=== PATIENT | male | born 1945 | race Caucasian/White ===

== ENCOUNTER → 2017-04-18 | Outpatient (CLI) | payer MEDICARE, MEDICAID ==
[~2017-04-18] MED LIST: /TIOT18INH; ALEVE; ASPI81TA3; DUONSOL; IBUP800T; LEVA500T; LISI20TA5; LORATADINE; METHYLPREDNISOLONE; PROV90AE; SING10TA31; THERGRAN
--- NOTE | 2017-04-18 17:15 | REP ---
MAXILLOFACIAL CT WITHOUT CONTRAST: HISTORY: Chronic maxillary sinusitis. Minimal mucosal thickening is present in the frontal and left ethmoid sinuses. The remaining sinuses are clear. The ostiomeatal units are patent. The middle and inferior nasal turbinates are partially paradoxical. There is moderate deviation of the nasal septum to the right. The nasal septum abuts the right inferior nasal turbinate. The cribriform plate, medial pa of the orbits and optic canals are intact. The carotid canals form a segment of the posterolateral pa of the sphenoid sinus. IMPRESSION: Sinus mucosal thickening as described above. Signed by Hussain Lr MD 04/19/2017 08:10 A
== END ==
LOC: M RAD 16:35
PROVIDERS: ATTEND Otolaryngology
DX: J32.0 Chronic maxillary sinusitis (principal)

== ENCOUNTER 2018-01-11 11:50 | Observation (INO) | payer MEDICARE, MEDICAID ==
[2018-01-11] MEDS: LORazepam 2 MG/ML VIAL (J2060) IV ×2 (14:11→16:32)
[2018-01-11] MEDS: NS 1,000 ML IV ×2 (14:13→23:28)
[2018-01-11 14:15] LABS: BASO % 0.2 % (0.0-1.0); EOS # 0.1 10^3/uL (0.0-0.50); EOS % 0.6 % (0.0-3.0); HEMATOCRIT 43.5 % (42.0-52.0); IMMATURE GRANULOCYTE % 0.3 % (0-3.0); LYMPH % 19.1 % (24.0-44.0); MEAN CORPUSCULAR HEMOGLOBIN 32.3 pg (27.0-33.0); MEAN CORPUSCULAR HGB CONC 34.5 g/dl (32.0-36.5); MEAN CORPUSCULAR VOLUME 93.8 fl (80.0-96.0); MONO # 0.7 10^3/uL (0.0-0.8); MONO % 6.4 % (0.0-5.0); NEUTROPHILS # 7.8 10^3/uL (1.8-7.7); NEUTROPHILS % 73.4 % (36.0-66.0); PLATELET COUNT, AUTOMATED 253 10^3/uL (150-450); RED BLOOD COUNT 4.64 10^6/uL (4.30-6.10); RED CELL DISTRIBUTION WIDTH 12.6 % (11.5-14.5); WHITE BLOOD COUNT 10.6 10^3/uL (4.0-10.0)
[2018-01-11 14:39] LABS: ALKALINE PHOSPHATASE 54 U/L (45-117); ALT/SGPT 31 U/L (12-78); ANION GAP 10 MEQ/L (8-16); AST/SGOT 29 U/L (7-37); BLOOD UREA NITROGEN 19 MG/DL (7-18); CALCIUM LEVEL 8.9 MG/DL (8.8-10.2); CARBON DIOXIDE LEVEL 25 MEQ/L (21-32); CHLORIDE LEVEL 107 MEQ/L (98-107); CPK CREATINE PHOSPHOKINASE 561 U/L (39-308); CREATININE FOR GFR 0.95 MG/DL (0.70-1.30); GLOMERULAR FILTRATION RATE > 60.0 (>42); GLUCOSE, FASTING 106 MG/DL (70-100); POTASSIUM SERUM 4.1 MEQ/L (3.5-5.1); SODIUM LEVEL 142 MEQ/L (136-145)
[2018-01-11 14:40] LABS: ALBUMIN 3.8 GM/DL (3.2-5.2); ALBUMIN/GLOBULIN RATIO 1.15 (1.00-1.93); BILIRUBIN,DIRECT 0.1 MG/DL (0.0-0.2); BILIRUBIN,TOTAL 0.4 MG/DL (0.2-1.0); CK-MB VALUE MASS 3.8 NG/ML (<3.6); LIPASE 93 U/L (73-393); MB/CK RELATIVE INDEX 0.67 (< OR =4); TOTAL PROTEIN 7.1 GM/DL (6.4-8.2); TROPONIN I < 0.02 NG/ML (< 0.10)
[2018-01-11] MEDS: MECLIZINE 25 MG TABLET PO (16:32)
[2018-01-11] MEDS ORDERED: BISACODYL 5 MG TAB PO (23:30)
[2018-01-11] MEDS ORDERED: ONDANSETRON 4MG/2ML VIAL (J2405) IV (23:30)
[2018-01-11] MEDS ORDERED: ACETAMINOPHEN TAB 650MG DOSE (2X325MG) PO (23:30)
[2018-01-11] MEDS ORDERED: LORazepam 2 MG/ML VIAL (J2060) IV (23:30)
[2018-01-11] MEDS ORDERED: diphenhydrAMINE INJ 50MG/ML VIAL (J1200) IV (23:30)
[2018-01-11] MEDS ORDERED: METOCLOPRAMIDE INJ 10MG/2ML VIAL (J2765) IV (23:30)
[2018-01-11] MEDS ORDERED: MECLIZINE 12.5 MG TAB PO (23:30)
[2018-01-11] MEDS ORDERED: BISACODYL 10 MG SUPP PR (23:30)
[2018-01-12] MEDS ORDERED: IPRATROPIUM 0.5MG/ALBUTEROL 2.5MG INH SOL UD 3ML (DUONEB)(J7620) NEB (00:30)
[2018-01-12] MEDS: IPRATROPIUM 0.5MG/ALBUTEROL 2.5MG INH SOL UD 3ML (DUONEB)(J7620) NEB ×3 (01:35→14:00)
[2018-01-12] MEDS: HEPARIN SOD (PORCINE) 5000 UNITS/ML VIAL SC (06:00)
[2018-01-12] MEDS: TIOTROPIUM INHALER/CAPSULE (SPIRIVA) INH (08:00)
[2018-01-12 08:24] LABS: HEMOGLOBIN 14.7 g/dl (13.5-17.5); MEAN CORPUSCULAR HEMOGLOBIN 32.7 pg (27.0-33.0); MEAN CORPUSCULAR VOLUME 93.3 fl (80.0-96.0); PLATELET COUNT, AUTOMATED 232 10^3/uL (150-450); RED CELL DISTRIBUTION WIDTH 12.6 % (11.5-14.5); WHITE BLOOD COUNT 12.1 10^3/uL (4.0-10.0)
[2018-01-12 08:38] LABS: ANION GAP 7 MEQ/L (8-16); BLOOD UREA NITROGEN 20 MG/DL (7-18); CALCIUM LEVEL 8.7 MG/DL (8.8-10.2); CARBON DIOXIDE LEVEL 25 MEQ/L (21-32); CHLORIDE LEVEL 108 MEQ/L (98-107); CREATININE FOR GFR 0.82 MG/DL (0.70-1.30); GLOMERULAR FILTRATION RATE > 60.0 (>42); GLUCOSE, FASTING 94 MG/DL (70-100); SODIUM LEVEL 140 MEQ/L (136-145)
[2018-01-12] MEDS: ASPIRIN 81 MG ENTERIC TAB PO (10:48)
[2018-01-12] MEDS: MECLIZINE 12.5 MG TAB PO (10:48)
== END 2018-01-12 15:31 | disposition home or self-care (01) ==
LOC: M ED 11:50 → M ED INP 23:28
DX: R42 Dizziness and giddiness (principal); R11.2 Nausea with vomiting, unspecified; J44.9 Chronic obstructive pulmonary disease, unspecified; E78.4 Other hyperlipidemia; I10 Essential (primary) hypertension; K44.9 Diaphragmatic hernia without obstruction or gangrene; B18.2 Chronic viral hepatitis C; Z79.899 Other long term (current) drug therapy; F17.210 Nicotine dependence, cigarettes, uncomplicated; Z88.8 Allergy status to other drugs, medicaments and biological substances; Z86.59 Personal history of other mental and behavioral disorders; Z79.82 Long term (current) use of aspirin
CPT/HCPCS: J2060

== ENCOUNTER → 2018-02-06 | Outpatient (CLI) | payer MEDICARE, MEDICAID | LOC: M RAD 13:18 | DX: N63.20 Unspecified lump in the left breast, unspecified quadrant (principal) | CPT/HCPCS: 77066 ==

== ENCOUNTER → 2018-03-12 | Outpatient (CLI) | payer MEDICARE, MEDICAID | LOC: M RAD 10:48 | DX: H92.11 Otorrhea, right ear (principal); J32.2 Chronic ethmoidal sinusitis; Z98.890 Other specified postprocedural states | CPT/HCPCS: 70480 ==

== ENCOUNTER 2020-03-06 11:07 | Emergency (ER) | payer MEDICARE, MEDICAID ==
[~2020-03-06] VITALS: Ht 193 cm; Wt 80.2 kg
[~2020-03-06 11:07] MED LIST changes: -/TIOT18INH; -ASPI81TA3; +ASPI81TA3 PO; -DUONSOL; +DUONSOL INH; -IBUP800T; +IBUP800T PO; +LISI10TA4 PO; -LISI20TA5; +LISI20TA5 PO; +LORA10CA PO; +MECL-86 PO; +MECL1TAB31 PO; +NAPR250T4 PO; -PROV90AE; +PROV90AE INH; -SING10TA31; +SING10TA31 PO; +SPIR1CAP INH; -THERGRAN; +THERGRAN PO; +ZOFR4TAB16 PO
[2020-03-06] MEDS ORDERED: CYCLOBENZAPRINE 10MG TABLET PO ONE (12:45)
[2020-03-06] MEDS ORDERED: LIDOCAINE 5% (LIDODERM) PATCH TD ONE (12:45)
--- NOTE | 2020-03-06 13:10 | REPVR ---
PROCEDURE INFORMATION: Exam: CT Abdomen And Pelvis Without Contrast Exam date and time: 03/06/2020 12:48 PM Age: 74 years old Clinical indication: Abdominal pain; Localized; Left; Additional info: L flank pain/cva tenderness R/O kidney stone TECHNIQUE: Imaging protocol: Computed tomography of the abdomen and pelvis without contrast. Radiation optimization: All CT scans at this facility use at least one of these dose optimization techniques: automated exposure control; mA and/or kV adjustment per patient size (includes targeted exams where dose is matched to clinical indication); or iterative reconstruction. COMPARISON: CR Abdomen,Flat Upright,PA CHEST 01/11/2018 1:30 PM FINDINGS: Lungs: Lung bases are slightly hyperinflated without evidence of abnormal mass lesions. There is mild bibasilar bronchiectasis. Liver: Liver is mildly fatty nonenlarged. Gallbladder and bile ducts: Gallbladder has been removed. Pancreas: Normal. No ductal dilation. Spleen: Normal. No splenomegaly. Adrenals: Normal. No mass. Kidneys and ureters: Simple cysts are noted involving the right kidney measuring up to 16 mm. Stomach and bowel: Scattered colonic diverticula are identified. Appendix: The appendix is seen appears normal. Intraperitoneal space: Unremarkable. No free air. No significant fluid collection. Vasculature: Unremarkable. No abdominal aortic aneurysm. Lymph nodes: Unremarkable. No enlarged lymph nodes. Urinary bladder: Unremarkable as visualized. Reproductive: Prostate is slightly enlarged indenting the base of the bladder. Bones/joints: Very severe degenerative changes are seen from L2-L4. Soft tissues: Unremarkable. IMPRESSION: 1. Bosniak class 1 renal cysts. No further workup recommended. 2. No nephrolithiasis nor hydronephrosis. 3. Bronchiectasis in lung base hyperinflation. 4. Status post cholecystectomy. 5. Diverticular disease. 6. Suspected enlarged prostate. There is no evidence of urinary bladder wall thickening. COMMENTS: Consistent with the [employer]'s Incidental Findings Committee white paper (J Am Pierce Radiol 2018): Any incidental renal lesion less than 1 cm or classified as too small to characterize, or any incidental cystic renal lesion characterized as simple-appearing, is likely benign. No follow-up imaging is recommended for these lesions per consensus recommendations based on imaging criteria. Electronically signed by: Martín Flores On 03/06/2020 13:10:22 PM
[2020-03-06] MEDS ORDERED: LIDO5DIS41 TOP (13:20)
[2020-03-06] MEDS ORDERED: CYCL-707 PO (13:20)
[2020-03-06 13:24] VITALS: BP 163/73
[2020-03-06] MEDS ORDERED: **NOTE PATIENT COMMENT** MISC XX SCH (21:00)
== END 2020-03-06 13:28 | disposition home or self-care (01) ==
LOC: M ED 11:07
DX: M54.5 Low back pain (principal); N28.1 Cyst of kidney, acquired; K57.32 Diverticulitis of large intestine without perforation or abscess without bleeding; I10 Essential (primary) hypertension; J44.9 Chronic obstructive pulmonary disease, unspecified; E78.5 Hyperlipidemia, unspecified; F17.200 Nicotine dependence, unspecified, uncomplicated; Z79.82 Long term (current) use of aspirin; Z79.899 Other long term (current) drug therapy; Z88.8 Allergy status to other drugs, medicaments and biological substances

== ENCOUNTER → 2020-12-04 | Outpatient (CLI) | payer MEDICARE, MEDICAID ==
[~2020-12-04] MED LIST changes: +CYCL-707 PO; +LIDO5DIS41 TOP; +LISI10TA22 PO; -LISI10TA4 PO; +NAPR-849 PO; -NAPR250T4 PO
== END ==
LOC: M LAB 13:34
PROVIDERS: ATTEND Nurse Practitioner Women's Health
DX: R97.20 Elevated prostate specific antigen [PSA] (principal)

== ENCOUNTER → 2020-12-09 | Outpatient (REF) | payer MEDICARE, MEDICAID ==
[2020-12-09 17:41] LABS: APPEARANCE, URINE CLEAR (CLEAR); BACTERIA, URINE AUTO NEGATIVE (NEGATIVE); BILIRUBIN, URINE AUTO NEGATIVE (NEGATIVE); BLOOD, URINE BLOOD NEGATIVE (NEGATIVE); COLOR, URINE YELLOW (YELLOW); GLUCOSE, URINE (UA) AUTO NEGATIVE (NEGATIVE); KETONE, URINE AUTO NEGATIVE (NEGATIVE); LEUKOCYTE ESTERASE, URINE AUTO NEGATIVE (NEGATIVE); NITRITE, URINE AUTO NEGATIVE (NEGATIVE); PROTEIN, URINE AUTO NEGATIVE (NEGATIVE); RBC, URINE AUTO 0 /HPF (0-3); SPECIFIC GRAVITY URINE AUTO 1.006 (1.002-1.035); SQUAMOUS EPITHELIAL CELL UR AU 0 /HPF (0-6); UROBILINOGEN, URINE AUTO 0.2 mg/dL (0.0-2.0); WBC, URINE AUTO 0 /HPF (0-3)
== END ==
LOC: M SMT 16:41
PROVIDERS: ATTEND Nurse Practitioner Women's Health
DX: R97.20 Elevated prostate specific antigen [PSA] (principal); N40.0 Benign prostatic hyperplasia without lower urinary tract symptoms

== ENCOUNTER 2021-01-01 10:34 | Emergency (ER) | payer MEDICARE, MEDICAID ==
[~2021-01-01] VITALS: Ht 193 cm; Wt 76.7 kg
[2021-01-01 10:35] VITALS: BP 126/60
[2021-01-01] MEDS ORDERED: NS 1,000 ML IV ONE (12:35)
[2021-01-01] MEDS ORDERED: ISOVUE-370 76% 100ML VIAL As Ordered ONE (13:06)
[2021-01-01 13:07] LABS: BASO % 0.3 % (0.0-1.0); EOS % 0.3 % (0.0-3.0); HEMATOCRIT 38.4 % (42.0-52.0); HEMOGLOBIN 13.3 g/dl (13.5-17.5); LYMPH # 1.5 10^3/uL (1.5-5.0); LYMPH % 14.4 % (24.0-44.0); MEAN CORPUSCULAR HEMOGLOBIN 32.5 pg (27.0-33.0); MEAN CORPUSCULAR HGB CONC 34.6 g/dl (32.0-36.5); MEAN CORPUSCULAR VOLUME 93.9 fl (80.0-96.0); MONO % 9.7 % (2.0-8.0); NEUTROPHILS # 7.8 10^3/uL (1.5-8.5); NEUTROPHILS % 74.7 % (36.0-66.0); PLATELET COUNT, AUTOMATED 245 10^3/uL (150-450); RED BLOOD COUNT 4.09 10^6/uL (4.30-6.10); WHITE BLOOD COUNT 10.4 10^3/uL (4.0-10.0)
[2021-01-01 13:34] LABS: ALBUMIN 3.6 GM/DL (3.2-5.2); BILIRUBIN,DIRECT 0.2 MG/DL (0.0-0.2); BILIRUBIN,TOTAL 0.5 MG/DL (0.2-1.0); TOTAL PROTEIN 6.9 GM/DL (6.4-8.2)
--- NOTE | 2021-01-01 13:37 | REP ---
INDICATION: epigastric pain, dyspepsia smoker. COMPARISON: None. TECHNIQUE: scans were obtained with contrast. FINDINGS: The lungs are emphysematous. There is a focus of pleural thickening the right side posteriorly. Multiple nonenlarged lymph nodes are noted in the mediastinum. There is no evidence of pneumonia or lung nodule. The thyroid is not enlarged. The coronary arteries are calcified. The heart is not enlarged. The adrenal glands are unremarkable. IMPRESSION: Emphysema. No active process patient <Electronically signed by Jan Dickerson > 01/01/21 [id number]
--- NOTE | 2021-01-01 13:40 | REP ---
INDICATION: epigastric pain, dyspepsia smoker. COMPARISON: None. TECHNIQUE: Scans were obtained during contrast administration. FINDINGS: The gallbladder has been surgically removed. The bile ducts are not dilated. The liver shows normal size and attenuation. The pancreas, spleen, aorta, adrenal glands unremarkable. Small bilateral renal cysts. No mass or hydronephrosis in either kidney. No mesenteric or retroperitoneal adenopathy. No inflammatory changes in the abdomen or pelvis. Large and small bowel unremarkable. Prostate enlarged measuring 5 x 5.5 cm. IMPRESSION: Enlarged prostate. Small bilateral renal cysts. No mass, adenopathy or inflammatory change in the abdomen or pelvis. <Electronically signed by Jan Dickerson > 01/01/21 [id number]
[2021-01-01] MEDS ORDERED: SIME180C25 PO (15:17)
[2021-01-01] MEDS ORDERED: CARA1TAB6 PO (15:17)
--- NOTE | 2021-01-02 08:04 | ED PDOC ---
Post-Departure Follow-Up radiology report faxed to ihsan Tabor Sarah MD Jan 02, 2021 08:04
== END 2021-01-01 15:25 | disposition home or self-care (01) ==
LOC: M ED 10:34
DX: R10.13 Epigastric pain (principal); F17.200 Nicotine dependence, unspecified, uncomplicated; J43.9 Emphysema, unspecified; N40.0 Benign prostatic hyperplasia without lower urinary tract symptoms; N28.1 Cyst of kidney, acquired; Z79.82 Long term (current) use of aspirin; Z79.899 Other long term (current) drug therapy; Z88.8 Allergy status to other drugs, medicaments and biological substances
CPT/HCPCS: 71260; 74177; 80047; 80076; 83690; 85025; 96360; 96361; 99283; Q9967

== ENCOUNTER 2021-02-05 17:54 | Emergency (ER) | payer MEDICARE, MEDICAID ==
[~2021-02-05] VITALS: Ht 193 cm; Wt 75.0 kg
[~2021-02-05 17:54] MED LIST changes: +CARA1TAB6 PO; +SIME180C25 PO
[2021-02-05 19:34] LABS: BASO % 0.3 % (0.0-1.0); EOS # 0.1 10^3/uL (0.0-0.5); EOS % 1.1 % (0.0-3.0); HEMATOCRIT 36.4 % (42.0-52.0); HEMOGLOBIN 12.4 g/dl (13.5-17.5); LYMPH # 2.4 10^3/uL (1.5-5.0); LYMPH % 23.6 % (24.0-44.0); MEAN CORPUSCULAR HEMOGLOBIN 31.7 pg (27.0-33.0); MEAN CORPUSCULAR HGB CONC 34.1 g/dl (32.0-36.5); MEAN CORPUSCULAR VOLUME 93.1 fl (80.0-96.0); MONO # 1.2 10^3/uL (0.0-0.8); MONO % 11.8 % (2.0-8.0); NEUTROPHILS # 6.4 10^3/uL (1.5-8.5); NEUTROPHILS % 62.9 % (36.0-66.0); PLATELET COUNT, AUTOMATED 271 10^3/uL (150-450); RED BLOOD COUNT 3.91 10^6/uL (4.30-6.10); WHITE BLOOD COUNT 10.2 10^3/uL (4.0-10.0)
[2021-02-05 20:08] LABS: ALBUMIN 2.7 GM/DL (3.2-5.2); ALT/SGPT 24 U/L (12-78); BILIRUBIN,DIRECT 0.2 MG/DL (0.0-0.2); BILIRUBIN,TOTAL 0.5 MG/DL (0.2-1.0); BLOOD UREA NITROGEN 10 MG/DL (7-18); CALCIUM LEVEL 8.3 MG/DL (8.8-10.2); CARBON DIOXIDE LEVEL 26 MEQ/L (21-32); CHLORIDE LEVEL 99 MEQ/L (98-107); CK-MB VALUE MASS < 1.0 NG/ML (<3.6); CPK CREATINE PHOSPHOKINASE 73 U/L (39-308); CREATININE FOR GFR 0.89 MG/DL (0.70-1.30); FREE T4 1.33 NG/DL (0.76-1.46); GLOMERULAR FILTRATION RATE > 60.0 (>42); GLUCOSE, FASTING 98 MG/DL (70-100); LIPASE 45 U/L (73-393); MB/CK RELATIVE INDEX 1.37 (< OR =4); POTASSIUM SERUM 4.5 MEQ/L (3.5-5.1); SODIUM LEVEL 132 MEQ/L (136-145); TROPONIN I < 0.02 NG/ML (< 0.10)
--- NOTE | 2021-02-05 20:10 | REP ---
INDICATION: CHEST PAIN. COMPARISON: 07/14/2017 TECHNIQUE: Portable FINDINGS: The technique utilized in obtaining the radiograph has magnified the cardiac silhouette and accentuated the interstitial markings. The patient is tilted rotated to the right. The lung lomas are clear and essentially unchanged compared to the prior exam. The heart is not enlarged the pleural angles are sharp. The osseous structures are within normal limits. IMPRESSION: There is no acute cardiopulmonary disease. <Electronically signed by Flaco Jacobson > 02/05/212005
[2021-02-05] MEDS ORDERED: PROT1TAB2 PO (20:51)
[2021-02-05 21:10] VITALS: BP 128/65
--- NOTE | 2021-02-06 11:25 | ECGEPIP ---
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
== END 2021-02-05 21:22 | disposition home or self-care (01) ==
LOC: M ED 17:54
DX: R13.10 Dysphagia, unspecified (principal); K44.9 Diaphragmatic hernia without obstruction or gangrene; K21.9 Gastro-esophageal reflux disease without esophagitis; F17.200 Nicotine dependence, unspecified, uncomplicated; Z79.899 Other long term (current) drug therapy; Z88.8 Allergy status to other drugs, medicaments and biological substances

== ENCOUNTER 2021-02-12 15:39 | Inpatient (IN) | payer MEDICARE, MEDICAID ==
[~2021-02-12] VITALS: Ht 193 cm; Wt 75.0 kg
[~2021-02-12 15:39] MED LIST changes: +PROT1TAB2 PO
--- NOTE | 2021-02-12 16:50 | REP ---
INDICATION: dizziness. COMPARISON: 02/05/2021 TECHNIQUE: Portable FINDINGS: The technique utilized in obtaining the radiograph has magnified the cardiac silhouette and accentuated the interstitial markings. There is cardiomegaly accentuated by technique status quo. Lung lomas are hyperexpanded status quo. There are chronic bibasilar changes. No definite acute patchy parenchymal opacities or pleural effusions seem to have developed. There is no significant change in appearance of the osseous structures IMPRESSION: Stable appearing chronic changes. <Electronically signed by Flaco Jacobson > 02/12/21 [id number]
[2021-02-12 17:10] LABS: BASO % 0.1 % (0.0-1.0); EOS % 0.1 % (0.0-3.0); HEMATOCRIT 34.9 % (42.0-52.0); HEMOGLOBIN 11.9 g/dl (13.5-17.5); LYMPH # 1.4 10^3/uL (1.5-5.0); LYMPH % 7.2 % (24.0-44.0); MEAN CORPUSCULAR HEMOGLOBIN 31.5 pg (27.0-33.0); MEAN CORPUSCULAR HGB CONC 34.1 g/dl (32.0-36.5); MEAN CORPUSCULAR VOLUME 92.3 fl (80.0-96.0); MONO # 1.6 10^3/uL (0.0-0.8); MONO % 8.1 % (2.0-8.0); NEUTROPHILS # 16.1 10^3/uL (1.5-8.5); PLATELET COUNT, AUTOMATED 344 10^3/uL (150-450); RED BLOOD COUNT 3.78 10^6/uL (4.30-6.10); WHITE BLOOD COUNT 19.1 10^3/uL (4.0-10.0)
[2021-02-12] MEDS ORDERED: LIDOCAINE 2% 5ML JELLY UROJET As Ordered ONE (17:11)
[2021-02-12] MEDS ORDERED: LIDOCAINE 2% 5ML JELLY UROJET TOP ONE (17:25)
[2021-02-12 17:37] LABS: ALBUMIN 2.9 GM/DL (3.2-5.2); ALT/SGPT 20 U/L (12-78); BILIRUBIN,DIRECT 0.2 MG/DL (0.0-0.2); BILIRUBIN,TOTAL 0.4 MG/DL (0.2-1.0); BLOOD UREA NITROGEN 29 MG/DL (7-18); CARBON DIOXIDE LEVEL 26 MEQ/L (21-32); CHLORIDE LEVEL 95 MEQ/L (98-107); CK-MB VALUE MASS < 1.0 NG/ML (<3.6); CPK CREATINE PHOSPHOKINASE 49 U/L (39-308); FREE T4 1.53 NG/DL (0.76-1.46); GLOMERULAR FILTRATION RATE > 60.0 (>42); GLUCOSE, FASTING 123 MG/DL (70-100); LIPASE 50 U/L (73-393); MB/CK RELATIVE INDEX 2.04 (< OR =4); POTASSIUM SERUM 4.8 MEQ/L (3.5-5.1); SODIUM LEVEL 130 MEQ/L (136-145); TOTAL PROTEIN 6.3 GM/DL (6.4-8.2); TROPONIN I < 0.02 NG/ML (< 0.10)
[2021-02-12] MEDS: NS 1,000 ML IV SCH (17:50)
[2021-02-12] MEDS: GASTROGRAFIN SOLUTION 30ML PO SCH ×2 (18:50→19:25)
--- NOTE | 2021-02-12 19:30 | ECGEPIP ---
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
[2021-02-12] MEDS ORDERED: ISOVUE-370 76% 100ML VIAL As Ordered ONE (20:40)
[2021-02-12] MEDS ORDERED: TAMSULOSIN 0.4 MG CAP PO SCH (21:00)
--- NOTE | 2021-02-12 22:26 | REPVR ---
PROCEDURE INFORMATION: Exam: CT Abdomen And Pelvis With Contrast Exam date and time: 02/12/2021 9:07 PM Age: 75 years old Clinical indication: Abdominal pain; Localized; Upper; Additional info: Upper abd pain, no bowel movement x 4days TECHNIQUE: Imaging protocol: Computed tomography of the abdomen and pelvis with contrast. Radiation optimization: All CT scans at this facility use at least one of these dose optimization techniques: automated exposure control; mA and/or kV adjustment per patient size (includes targeted exams where dose is matched to clinical indication); or iterative reconstruction. Contrast material: ISOVUE 370; Contrast volume: 100 ml; Contrast route: INTRAVENOUS (IV); COMPARISON: CT ABD/PEL W/IV CONTRAST ONLY 01/01/2021 1:12 PM FINDINGS: Pleural spaces: Small right pleural effusion in the visualized lung base. Heart: Small size of pericardial effusion. Liver: Normal. No mass. Gallbladder and bile ducts: Cholecystectomy clips. Pancreas: Normal. No ductal dilation. Spleen: Normal. No splenomegaly. Adrenal glands: Normal. No mass. Kidneys and ureters: 1.5 cm cyst in the midpole of left kidney. Stomach and bowel: Unremarkable. No obstruction. No mucosal thickening. Appendix: No evidence of appendicitis. Intraperitoneal space: Unremarkable. No free air. No significant fluid collection. Vasculature: Atherosclerotic calcification of the abdominal aorta and bilateral iliac vessels. Lymph nodes: Unremarkable. No enlarged lymph nodes. Urinary bladder: Urinary bladder is collapsed over a Gabriel's catheter. Reproductive: Prostate is enlarged and measures 5.5 x 5.4 cm. Bones/joints: Severe degenerative changes of the lumbar spine. Soft tissues: Unremarkable. IMPRESSION: No acute abdominal or pelvic abnormality. Small right pleural effusion in the visualized lung bases. Small pericardial effusion. COMMENTS: Consistent with the [employer]'s Incidental Findings Committee white paper (J Am Pierce Radiol 2018): Any incidental renal lesion less than 1 cm or classified as too small to characterize, or any incidental cystic renal lesion characterized as simple-appearing, is likely benign. No follow-up imaging is recommended for these lesions per consensus recommendations based on imaging criteria. Electronically signed by: Ang Spaulding On 02/12/2021 22:26:02 PM
[2021-02-13] VITALS (13 sets, daily range): BP systolic 90–151; BP diastolic 58–88; O2SAT 97
[2021-02-13] MEDS: NS 1,000 ML IV SCH (00:30)
[2021-02-13] MEDS ORDERED: ACETAMINOPHEN TAB 650MG DOSE (2X325MG) PO PRN (00:40)
--- NOTE | 2021-02-13 00:54 | HPEPDOC ---
General Date of Admission 02/13/21 Date of Service: Feb 13, 2021 Chief Complaint The patient is a 75-year-old male admitted with a reason for visit of Dizziness, dec urine output Source: Patient History of Present Illness Magdiel Alcala is a 75-year-old man with significant history of COPD on chronic 2 L nasal cannula nocturnally, GERD, ALEM, hep C, hypertension, HDL and history of EtOH/IV drug abuse who arrives with complaints of generalized weakness and poor p.o. past 4 days. Patient reports that he has been having symptoms of poor appetite, quickly satiated when eating and sensation of epigastric discomfort/bloating and nausea after eating small amount of food and describes "it getting stuck" for over a month. He also describes right abdominal herniation and "at times has to push it back in" if he eats too much in the past. He reports last bowel movement 4 days ago however he "only has had a scrambled egg and some toast in the past 4 days". He reports he had similar symptoms feb 05 and came in to ED with plans to f/u with GI OP. Patient reports that he has a appointment scheduled on the for GI with Dr. Castellanos. Unfortunately, the past 3 to 4 days he has sensation of feeling weak, had decreased p.o. intake, decreased urine output "the amount of a whisky glass of urine today" and had sensation of feeling dizzy -he decided to come in to the ER. Pt denies dave, sinus congestion, sore throat, productive cough, sob, palpitations, chest pain, sensory changes or syncope. He denies dizziness presently. Of note, chest x-ray nonacute stable chronic changes noted and CT abdomen pelvis nonacute however did show small right pleural effusion, small pericardial effusion and left kidney cyst. Patient was bladder scan was 60 mL in ED and Gabriel placed and bag of fluid given patient with improved urine output however notable hematuria. Initial lab work reveals WBC of 19.1, lactic pending, sodium 130, BUN 29 and creatinine 1.10. Patient will be admitted for further evaluation management presenting concerns. Home Medications Scheduled Aspirin (Aspirin EC) 81 Mg Tablet., 81 MG PO DAILY, (Reported) Lisinopril (Lisinopril) 10 Mg Tablet, 10 MG PO DAILY, (Reported) Montelukast Sodium (Montelukast Sodium) 10 Mg Tablet, 10 MG PO DAILY, (Reported) Multivitamin,Therapeutic (Thera-Tabs) 1 Each Tablet, 1 TAB PO DAILY, (Reported) Sucralfate (Carafate) 1 Gm Tablet, 1 GM PO AC 3 times per day on an empty stomach 1 hour before meals. May dissolve tablet in 5-10ml (1-2tsp) water to ease swallowing. Tiotropium Kyburz (Spiriva) 18 Mcg Cap.w.dev, 1 INHALATION INH QHS, (Reported) Scheduled PRN Albuterol Sulfate (Albuterol Sulfate Hfa) 8.5 Gm Hfa.aer.ad, 2 PUFFS INH Q6H PRN for SHORTNESS OF BREATH, (Reported) Naproxen (Naproxen) 500 Mg Tablet, 500 MG PO BID PRN for PAIN, (Reported) Simethicone (Simethicone) 180 Mg Capsule, 180 MG PO TID PRN for BLOATING, (Reported) Allergies Coded Allergies: Corticosteroids (Glucocorticoids) (Verified Allergy, Severe, STEROIDS- AIRWAY ISSUES, 03/06/20) Past Medical History Medical History Hep C, ?hiatial hernia, previous ETOH and IVDA, diverticulosis, hemorrhoids, 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. A-FIB/CHADSVASC A-FIB History Current/History of A-Fib/PAF?: No Current PO Anticoag Therapy: No Review of Systems Constitutional: Reports: Weakness, Fatigue; Denies: Chills, Fever, Night Sweats Eyes: Denies: Pain, Vision change ENT: Denies: Head Aches, Ear Pain, Dysphagia Skin: Denies: Rash, Lesions, Breakdown Pulmonary: Denies: Dyspnea, Cough Cardiovascular: Reports: Lt Headedness; Denies: Chest Pain, Palpitations, Orthopnea, Paroxysmal Noc. Dyspnea Gastrointestinal: Reports: Nausea, Abdominal Pain, Constipation; Denies: Vomiting, Diarrhea Genitourinary: Denies: Dysuria, Frequency, Incontinence, Retention Hematologic: Denies: Bruising, Bleeding Excessively Musculoskeletal: Denies: Neck Pain, Back Pain, Joint Pain, Muscle Pain, Spasms Neurological: Denies: Weakness, Numbness, Change in speech, Confusion Psych: Reports: Mood Normal; Denies: Depression, Memory Issues Physical Examination General Exam: Positive: Alert, No Acute Distress Eye Exam: Positive: PERRLA, Conjunctiva & lids normal, EOMI; Negative: Sclera icteric ENT Exam: Positive: Atraumatic, Mucous membr. moist/pink, Pharynx Normal Neck Exam: Positive: Supple; Negative: JVD, thyromegaly Chest Exam: Positive: Diminished, Other (Barrel chest noted) Heart Exam: Positive: Tachycardic, Regular Rhythm, Normal S1, Normal S2; Negative: Murmurs, Rubs Telemetry: Positive: Sinus, Tachycardia Abdomen Exam: Positive: BS Hypoactive, Soft, Hernia (Right abdominal); Negative: Tenderness, Hepatospenomegaly Extremity Exam: Positive: Normal pulses; Negative: Clubbing, Cyanosis, Edema Skin Exam: Positive: Nl turgor and temperature; Negative: Breakdown, Lesion Neuro Exam: Positive: Normal Gait, Normal Speech, Strength at 5/5 X4 ext, Normal Tone, Sensation Intact Psych Exam: Positive: Mental status NL, Mood NL, Oriented x 3 Vital Signs Vital Signs Date Time Temp Pulse Resp B/P (MAP) Pulse Ox O2 Delivery O2 Flow Rate FiO2 02/12/21 23:45 86 20 147/80 (102) 98 Nasal Cannula 2.0 02/12/21 15:59 99.3 Laboratory Data Labs 24H Laboratory Tests 2 02/12/21 16:43: Immature Granulocyte % (Auto) 0.5, Neutrophils (%) (Auto) 84.0H, Lymphocytes (%) (Auto) 7.2L, Monocytes (%) (Auto) 8.1H, Eosinophils (%) (Auto) 0.1, Basophils (%) (Auto) 0.1, Neutrophils # (Auto) 16.1H, Lymphocytes # (Auto) 1.4L, Monocytes # (Auto) 1.6H, Eosinophils # (Auto) 0.0, Basophils # (Auto) 0.0, Nucleated Red Blood Cells % (auto) 0.0, Urine Color YELLOW, Urine Appearance HAZY, Urine pH 5. 0, Urine Specific [place] 1.019, Urine Protein 1+H, Urine Glucose (UA) NEGATIVE, Urine Ketones NEGATIVE, Urine Blood 2+H, Urine Nitrite NEGATIVE, Urine Bilirubin NEGATIVE, Urine Urobilinogen 2.0H, Urine Leukocyte Esterase NEGATIVE, Urine WBC (Auto) 4H, Urine RBC (Auto) 12H, Urine Hyaline Casts (Auto) 5, Urine Bacteria (Auto) NEGATIVE, Urine Squamous Epithelial Cells 0, Urine Mucus (Auto) SMALL, Ur ine Sperm (Auto) , Anion Gap 9, Glomerular Filtration Rate > 60.0, Calcium Level 9.0, Total Bilirubin 0.4, Direct Bilirubin 0.2, Aspartate Amino Transf (AST/SGOT) 18, Alanine Aminotransferase (ALT/SGPT) 20, Alkaline Phosphatase 54, Total Creatine Kinase 49, Creatine Kinase MB < 1.0, Creatine Kinase MB Relative Index 2.04, Troponin I < 0.02, Total Protein 6.3L, Albumin 2.9L, Albumin/Globulin Ratio 0.9, Lipase 50L, Thyroid Stimulating Hormone (TSH) 1.260, Free Thyroxine 1.53H 02/13/21 00:33: CBC/BMP Laboratory Tests 02/12/21 16:43 Assessment/Plan 1. New Onset afib rvr: during admission to floor pt with tachycardia 120s-150s and found to be irregular- afibrvr. Pt did endorse palpitations and denied hx. Mag 1.7. -Plan for mag repletion. -Metoprolol PO. -ECHO ordered for AM as noted below. -Chads Vasc elevated- opted for hep gtt given possible scope and pt with hematuria and anemia. Consider usp OAC and cardiology f/u with d/c. 2. Epigastric discomfort in patient with GERD: Concern for esophageal stricture. Plan for patient to be n.p.o. pending GI feedback for possible scope inpatient versus follow-up outpatient Hydrate with consideration given pleural effusion and pericardial effusion noted; however he does appear dry on exam A.m. lab 3. Dizziness: Patient reported resolution in ED. He noted dizziness today with activity. Possible dizziness related to overall weakness due to poor p.o. versus consideration for cardiogenic factor with notable small pericardial effusion on CT abdomen pelvis. -Consider differential- given new onset afib noted above, could have been paroxysmal at home . Patient did have noted vertigo in chart history; but he denies -Telemetry monitoring -Will opt for echo in a.m. -Check Orthostatics 4. Hematuria in pt with BPH: Patient reports at home clear yellow urine, but decreased amount. Bladder scan completed in ED showed 60 mL. Gabriel placement for I's and O's and patient received IV fluids. Of note, Gabriel placement unsuccessful at first try and had to use coude. -Possible hematuria secondary to trauma with Gabriel placement. Continue to monitor for resolution. -Started patient on Flomax inpt. -Consider Urology recommendation pending patient response. 5. Leukocytosis: WBC 19.1. Patient afebrile, normotensive, not tachycardic or tachypneic. Chest x-ray nonacute and patient without URI symptoms. Urine with +RBCs however no leukoesterase or nitrates. -Lactic pending. Blood cultures pending. Consider differential and empiric coverage. 6. Anemia: Hgb 13 to 11 today. Denies blood loss. Check anemia panel, occult stool. Consider differentials. 7. Hyponatremia: Sodium 130. In setting of patient with poor p.o. -Plan for gentle hydration given above. A.m. labs. 8. Chronic COPD: Without signs of exacerbation. Patient tolerating 2 L nasal cannula which is his baseline at night. He denies increase in shortness of breath or changes of his baseline cough. He is able to speak in full sentences. Chest x-ray was stable chronic changes. CT abdomen pelvis did lease picker small pleural effusion right side. -Monitor patient respiratory status. -As needed and scheduled breathing treatments. -Continue Singulair, Mucinex 9. Hypertension: Monitor BP in setting of above. Continue home medications once reconciled. 10. OA and chronic pain: Encourage nonpharmacologic adjunct therapies. Continue home medications. DVT prophylaxis: SCDs, hep gtt added CODE STATUS: Full code Disposition: Pending GI recommendations and patient tolerating p.o. Plan / VTE VTE Prophylaxis Ordered?: Yes VANNA YAO NP Feb 13, 2021 00:52
[2021-02-13] MEDS ORDERED: ALBU8.5H INH (01:03)
[2021-02-13] MEDS ORDERED: ASPI81TA26 PO (01:03)
[2021-02-13] MEDS ORDERED: SIME1CAP3 PO (01:03)
[2021-02-13] MEDS ORDERED: LISI10TA22 PO (01:03)
[2021-02-13] MEDS ORDERED: MONT10TA10 PO (01:03)
[2021-02-13] MEDS ORDERED: NAPR-885 PO (01:03)
[2021-02-13] MEDS ORDERED: THERTAB52 PO (01:03)
[2021-02-13] MEDS ORDERED: SPIR1CAP INH (01:04)
[2021-02-13] MEDS ORDERED: HOME MED LIST COMPLETE! XX SCH (01:05)
[2021-02-13 01:25] LABS: RSV AMPLIFICATION NEGATIVE (NEGATIVE)
[2021-02-13] MEDS ORDERED: LR 1,000 ML IV SCH (02:40)
[2021-02-13] MEDS ORDERED: ALBUTEROL 90 MCG/ACT 8GM HFA INHALER INH PRN (02:40)
[2021-02-13] MEDS ORDERED: ONDANSETRON 4MG/2ML VIAL IV PRN (02:45)
[2021-02-13] MEDS: guaiFENesin ER 600 MG TAB PO SCH ×3 (03:34→23:00)
[2021-02-13 03:35] LABS: MAGNESIUM LEVEL 1.7 MG/DL (1.8-2.4)
[2021-02-13] MEDS ORDERED: LEVALBUTEROL 1.25 MG/0.5 ML CONCENTRATE NEB INH PRN (03:55)
[2021-02-13] MEDS ORDERED: METOPROLOL 5 MG/5 ML VIAL IV STA (03:56)
[2021-02-13] MEDS ORDERED: METOPROLOL TART 25 MG TABLET PO ONE (04:00)
[2021-02-13] MEDS ORDERED: MAG SULF 1GM/100ML (MAG RUN) 1 GM in IV 1 EA IV ONE (04:00)
[2021-02-13] MEDS ORDERED: HEPARIN SOD (PORCINE) 5000UNITS/ML 1ML VIAL/SYRINGE IV PRN (04:05)
[2021-02-13] MEDS ORDERED: HEPARIN DRIP 25,000 UNITS in IV 1 EA IV SCH (04:05)
[2021-02-13] MEDS ORDERED: HEPARIN SOD (PORCINE) 5000UNITS/ML 1ML VIAL/SYRINGE IV ONE ×2 (04:25→10:40)
[2021-02-13 05:42] LABS: BASO % 0.1 % (0.0-1.0); EOS % 0.1 % (0.0-3.0); HEMATOCRIT 33.9 % (42.0-52.0); HEMOGLOBIN 11.7 g/dl (13.5-17.5); LYMPH # 1.1 10^3/uL (1.5-5.0); LYMPH % 7.1 % (24.0-44.0); MEAN CORPUSCULAR HGB CONC 34.5 g/dl (32.0-36.5); MEAN CORPUSCULAR VOLUME 92.6 fl (80.0-96.0); MONO # 1.1 10^3/uL (0.0-0.8); MONO % 7.2 % (2.0-8.0); NEUTROPHILS # 12.9 10^3/uL (1.5-8.5); NEUTROPHILS % 85.1 % (36.0-66.0); PLATELET COUNT, AUTOMATED 312 10^3/uL (150-450); RED BLOOD COUNT 3.66 10^6/uL (4.30-6.10); WHITE BLOOD COUNT 15.1 10^3/uL (4.0-10.0)
[2021-02-13 05:59] LABS: BLOOD UREA NITROGEN 27 MG/DL (7-18); CALCIUM LEVEL 8.2 MG/DL (8.8-10.2); CARBON DIOXIDE LEVEL 27 MEQ/L (21-32); CHLORIDE LEVEL 98 MEQ/L (98-107); CREATININE FOR GFR 0.96 MG/DL (0.70-1.30); GLOMERULAR FILTRATION RATE > 60.0 (>42); GLUCOSE, FASTING 125 MG/DL (70-100); POTASSIUM SERUM 4.7 MEQ/L (3.5-5.1); SODIUM LEVEL 131 MEQ/L (136-145)
[2021-02-13 06:03] LABS: PERCENT SATURATION 9.3 % (19.7-50.0)
[2021-02-13] MEDS: SUCRALFATE 1 GM TAB PO SCH ×3 (07:30→16:30)
--- NOTE | 2021-02-13 09:10 | ECGEPIP ---
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
[2021-02-13] MEDS ORDERED: LEVALBUTEROL 1.25 MG/0.5 ML CONCENTRATE NEB NEB ONE (09:40)
[2021-02-13] MEDS: MONTELUKAST 10 MG TAB PO SCH (10:00)
[2021-02-13] MEDS: ASPIRIN 81MG ENTERIC TABLET PO SCH (10:00)
[2021-02-13] MEDS: MULTIVITAMINS/MINERALS THERAP 1 TAB PO SCH (10:04)
--- NOTE | 2021-02-13 10:33 | CR.PDOC ---
General Date of Consultation: Feb 13, 2021 Attending Physician: MIKE SPRINGER Consultation REASON FOR CONSULTATION/CHIEF COMPLAINT: [dysphagia/odynophagia for solids]. HISTORY OF PRESENT ILLNESS: . 1 month of progressive dysphagia/Odynophagia. He has no trouble initiating swallowing, but when solid food passes to lower esophagus, there is pain and burning sensation in lower chest and epigastrium. perhaps some "hangup" sensation. This is for solids only. He has no pain or dysphagia with liquids and scrambled eggs. He is able to clear saliva, has no waterbrash. He had outpatient appt for eval, however due to increasing dyspnea and weakness he presents to ER. He has increasing shortness of breath over past month. ALLERGIES: Please see below. HOME MEDICATIONS: Please see below. PAST MEDICAL HISTORY: COPD-O2 dependent GERD Hep C hiatial hernia diverticulosis Hep C Surgical History Cholecystectomy inguinal hernia repair FAMILY HISTORY: Neg CRC,IBD, Hereditary Diseases: [neg] SOCIAL HISTORY: Tobacco use:yes-recently stopped ETOH: yes/remote/former Illicit drug use: yes/remote/former] IV drug use: [yes/remote/former] REVIEW OF SYSTEMS: CONSTITUTIONAL: [dyspnea,weigt loss,]. HEENT: [neg]. CARDIOVASCULAR: [yes/palpitations]. RESPIRATORY: [yes/increasing dyspnea]. GENITOURINARY: [yes/frequency, decreased urination]. MUSCULOSKELETAL: [incresed weakness]. GASTROINTESTINAL: [above]. SKIN: . NEUROLOGICAL: [neg]. PSYCHIATRIC: [neg]. ENDOCRINE: [neg]. HEMATOLOGIC/LYMPHATIC: [neg]. ALLERGIC/IMMUNOLOGIC: [neg]. PHYSICAL EXAMINATION: VITAL SIGNS: Please see below. GENERAL APPEARANCE: chronically ill appearing male, AAOx3, moderate dyspnea-is on NC HEENT: [NC in place, otherwise unremarkable]. RESPIRATORY: [markedly decreased/distant bs throughout, some velcro crackles]. CARDIOVASCULAR: [tachy, +Murmur]. ABDOMEN: [soft, nt, good bowel sounds, no masses]. EXTREMITIES: [neg for edema, ]. NEUROLOGICAL: AAOx3, moves all extremities equally bilaterally, no deficit not ed. PSYCHIATRIC: [pleasant, no emotional distress]. LABORATORY DATA: Please see below. ASSESSMENT/PLAN/ 1) Pt with dysphagia/odynophagia/"hangup" for solids only. He has progressive weakness and is moderately dyspneic. on monitor heat rate is in 160-170 this am. After discussion with anesthesia today, the patient is not optimized to undergo an non- emergent sedated procedure at this time, as sedation/anesthesia would impart a significant risk. He is able to swallow fluids and we have some time to get him more stabilized for a planned sedated EGD+/-dilation. 2) Hep C. He was tested and may have been treated in 2006 with interferon based treatment. His LFT are normal at present. I am not certain of his treatment status. This will be checked and if still positive, can be referred to [facility]/Dr Arias as outpatient for treatment if necessary. REC: Would empirically start him on antifungal med for possible yeast esophagitis/odynophagia. Cont PPI, add carafate. Will check a Barium swallow on Monday. Optimize over weekend for EGD +/- dilation hopefully early next /Monday. Will check Hep C RNA and Genotype Vital Signs/I&O Vital Signs Date Time Temp Pulse Resp B/P (MAP) Pulse Ox O2 Delivery O2 Flow Rate FiO2 02/13/21 06:51 02/13-9:20 preop area 97.3 81 160-170 22 30 120/75 (90) 94 97 Nasal Cannula NC 2.0 2.0 I&O- Last 24 Hours up to 6 AM 02/13/21 06:00 Intake Total 363 ml Output Total 631 ml Balance -268 ml Laboratory Data Labs 24H Laboratory Tests 2 02/12/21 16:43: Immature Granulocyte % (Auto) 0.5, Neutrophils (%) (Auto) 84.0H, Lymphocytes (%) (Auto) 7.2L, Monocytes (%) (Auto) 8.1H, Eosinophils (%) (Auto) 0.1, Basophils (%) (Auto) 0.1, Neutrophils # (Auto) 16.1H, Lymphocytes # (Auto) 1.4L, Monocytes # (Auto) 1.6H, Eosinophils # (Auto) 0.0, Basophils # (Auto) 0.0, Nucleated Red Blood Cells % (auto) 0.0, Urine Color YELLOW, Urine Appearance HAZY, Urine pH 5.0, Urine Specific [place] 1.019, Urine Protein 1+H, Urine Glucose (UA) NEGATIVE, Urine Ketones NEGATIVE, Urine Blood 2+H, Urine Nitrite NEGATIVE, Urine Bilirubin NEGATIVE, Urine Urobilinogen 2.0H, Urine Leukocyte Esterase NEGATIVE, Urine WBC (Auto) 4H, Urine RBC (Auto) 12H, Urine Hyaline Casts (Auto) 5, Urine Bacteria (Auto) NEGATIVE, Urine Squamous Epithelial Cells 0, Urine Mucus (Auto) SMALL, Urine Sperm (Auto) , Anion Gap 9, Glomerular Filtration Rate > 60.0, Calcium Level 9.0, Total Bilirubin 0.4, Direct Bilirubin 0.2, Aspartate Amino Transf (AST/SGOT) 18, Alanine Aminotransferase (ALT/SGPT) 20, Alkaline Phosphatase 54, Total Creatine Kinase 49, Creatine Kinase MB < 1.0, Creatine Kinase MB Relative Index 2.04, Troponin I < 0.02, Total Protein 6.3L, Albumin 2.9L, Albumin/Globulin Ratio 0.9, Lipase 50L, Thyroid Stimulating Hormone (TSH) 1.260, Free Thyroxine 1.53H 02/13/21 00:33: Coronavirus (COVID-19)(PCR) NEGATIVE, Influenza Type A (RT-PCR) NEGATIVE, Influenza Type B (RT-PCR) NEGATIVE, Respiratory Syncytial Virus (PCR) NEGATIVE 02/13/21 01:23: Lactic Acid Level 1.1, Magnesium Level 1.7L, XK-Dsr-B-Type Natriuretic Peptide 2000H 02/13/21 05:27: Immature Granulocyte % (Auto) 0.4, Neutrophils (%) (Auto) 85.1H, Lymphocytes (%) (Auto) 7.1L, Monocytes (%) (Auto) 7.2, Eosinophils (%) (Auto) 0.1, Basophils (%) (Auto) 0.1, Neutrophils # (Auto) 12.9H, Lymphocytes # (Auto) 1.1L, Monocytes # (Auto) 1.1H, Eosinophils # (Auto) 0.0, Basophils # (Auto) 0.0, Nucleated Red Blood Cells % (auto) 0.0, Anion Gap 6L, Glomerular Filtration Rate > 60.0, Calcium Level 8.2L, Activated Partial Thromboplast Time 40.2H, Iron Level 20L, Total Iron Binding Capacity 214L, Transferrin % Saturation 9.3L, Ferritin 187 CBC/BMP Laboratory Tests 02/12/21 16:43 02/13/21 05:27 Microbiology Microbiology 02/13/21 Blood Culture, Received Pending Allergies Coded Allergies: Corticosteroids (Glucocorticoids) (Verified Allergy, Severe, STEROIDS- AIRWAY ISSUES, 03/06/20) Home Medications Scheduled Aspirin (Aspirin EC) 81 Mg Tablet.dr, 81 MG PO DAILY, (Reported) Lisinopril (Lisinopril) 10 Mg Tablet, 10 MG PO DAILY, (Reported) Montelukast Sodium (Montelukast Sodium) 10 Mg Tablet, 10 MG PO DAILY, (Reported) Multivitamin,Therapeutic (Thera-Tabs) 1 Each Tablet, 1 TAB PO DAILY, (Reported) Sucralfate (Carafate) 1 Gm Tablet, 1 GM PO AC for 20 Days, #60 3 times per day on an empty stomach 1 hour before meals. May dissolve tablet in 5-10ml (1-2tsp) water to ease swallowing. Tiotropium Nancy (Spiriva) 18 Mcg Cap.w.dev, 1 INHALATION INH QHS, (Reported) Scheduled PRN Albuterol Sulfate (Albuterol Sulfate Hfa) 8.5 Gm Hfa.aer.ad, 2 PUFFS INH Q6H PRN for SHORTNESS OF BREATH, (Reported) Naproxen (Naproxen) 500 Mg Tablet, 500 MG PO BID PRN for PAIN, (Reported) Simethicone (Simethicone) 180 Mg Capsule, 180 MG PO TID PRN for BLOATING, (Reported) JOSIAS GUALLPA MD Feb 13, 2021 10:33
[2021-02-13] MEDS ORDERED: METOPROLOL 5 MG/5 ML VIAL IV PRN (10:50)
[2021-02-13] MEDS: METOPROLOL TART 50 MG TAB PO SCH ×2 (11:16→23:00)
--- NOTE | 2021-02-13 11:26 | IPNPDOC ---
Text Note Date of Service The patient was seen on 02/13/21. NOTE Subjective: In the morning patient developed increased shortness of breath with rapid ventricular rate, EGD was canceled and postponed until Monday. Objective: GENERAL APPEARANCE: NAD HEENT: no scleral icterus, plus JVD, EOMI CARDIOVASCULAR: Irregularly irregular with heart rate around 125 LUNGS: Diminished lung sounds bilaterally ABDOMEN: soft & not tender w palpation MUSCULOSKELETAL: no cyanosis, no swelling INTEGUMENT: no generalized pallor NEUROLOGICAL: cranial nerve function from 2-12 intact, follows commands, speech not dysarthric Assessment and plan Patient 75 years old male with past medical history of COPD on chronic 2 L nasal cannula nocturnally, GERD, ALEM, hep C, hypertension, HDL and history of EtOH/IV drug abuse presented to hospital with progressive dysphagia/odynophagia. Patient was found to have atrial fibrillation with rapid ventricular rate and dyspnea secondary to COPD exacerbation. dysphagia/odynophagia/GERD Unknown etiology for now. Differential diagnosis includes malignancy, stric ture, achalasia GI team will proceed with EGD after respiratory status improvement Will check a Barium swallow on Monday Full liquid diet PPI Atrial fibrillation with rapid ventricular rate Heparin drip Metoprolol 50 mg twice daily Lopressor 5 mg IV as needed Dizziness Resolved Hematuria Most likely after traumatic Gabriel insertion Continue to monitor BPH Tamsulosin Leukocytosis Improved Patient afebrile, looks nontoxic Normocytic anemia Most likely anemia of chronic diseases superimposed with iron deficient anemia Iron panel shows low iron Iron supplementation We will check stool for occult blood Await B12, folate Dyspnea Secondary to COPD exacerbation superimposed with atrial fibrillation with rapid ventricular rate. Patient complains of chest congestion. We will check chest CTA to rule out PE and D-dimer Patient has allergy for glucocorticoids I will add DuoNeb [id number], continue Mucinex Hypertension Blood pressure under control Continue home meds We will start statin OA and chronic pain Continue pain management Hyponatremia Unknown etiology Most likely secondary to EtOH abuse We will check urine and serum osmolality and urine lites History of hepatitis C He was tested and may have been treated in 2006 with interferon based treatment Patient does not have transaminitis Will check Hep C RNA and Genotype Follow-up with GI team/ID team in the outpatient settings VS,Mario, I+O VS, Mario, I+O Laboratory Tests 02/12/21 16:43 02/13/21 05:27 Vital Signs Date Time Temp Pulse Resp B/P (MAP) Pulse Ox O2 Delivery O2 Flow Rate FiO2 02/13/21 09:30 134 22 96 Nasal Cannula 2.0 02/13/21 09:20 121/66 (84) 02/13/21 06:51 97.3 I&O- Last 24 Hours up to 6 AM 02/13/21 06:00 Intake Total 363 ml Output Total 631 ml Balance -268 ml KAREN BETANCOURT DO Feb 13, 2021 11:26
[2021-02-13] MEDS: HEPARIN DRIP 25,000 UNITS in IV 1 EA IV SCH (11:43)
[2021-02-13] MEDS: NYSTATIN 500,000 U/5 ML SUSP UDC PO SCH ×3 (11:56→23:00)
[2021-02-13] MEDS: ATORVASTATIN 10 MG TAB PO SCH (11:56)
[2021-02-13] MEDS: PANTOPRAZOLE 40MG VIAL (C9113 PER 1) IV SCH ×2 (11:56→23:00)
[2021-02-13] MEDS: IRON POLYSAC (NIFEREX) 150 MG CAP PO SCH ×2 (13:34→23:00)
[2021-02-13 13:37] LABS: ABG BASE EXCESS -1.2 (-2.0-2.0); ABG HCO3 23.2 MEQ/L (22.0-26.0); ABG O2 SATURATION 97.2 % (95.0-99.0); ABG PARTIAL PRESSURE CO2 37.8 mmHg (35.0-45.0); ABG PARTIAL PRESSURE O2 100.1 mmHg (75.0-100.0); ABG STANDARD HCO3 23.5 MEQ/L (22.0-26.0); ABG TOTAL CO2 24.4 MEQ/L (23.0-31.0); ABG pH (ARTERIAL) 7.406 UNITS (7.350-7.450)
[2021-02-13] MEDS ORDERED: IPRATROPIUM 0.5MG/ALBUTEROL 2.5MG INH SOL UD 3ML (DUONEB) NEB SCH (14:00)
[2021-02-13] MEDS ORDERED: FUROSEMIDE 40MG/4ML VIAL (J1940) IV ONE (14:00)
[2021-02-13 14:30] LABS: OSMOLALITY URINE 464 MOSM/KG (50-1400)
[2021-02-13 14:51] LABS: SODIUM,RANDOM URINE 88 MEQ/L
[2021-02-13] MEDS: LevoFLOXacin IV 750 MG in IV 1 EA IV SCH (16:22)
--- NOTE | 2021-02-13 17:24 | REP ---
INDICATION: DVT. COMPARISON: None. TECHNIQUE: 2D and color Doppler ultrasound evaluation of the deep venous system of both lower extremities was performed. FINDINGS: Ultrasound evaluation of the deep venous system of both lower extremities reveals no evidence of deep venous thrombosis. IMPRESSION: No evidence of deep venous thrombosis of either lower extremity. <Electronically signed by Kelton Alejandro > 02/13/21 [id number]
--- NOTE | 2021-02-13 18:39 | ECGEPIP ---
[facility] Test Date: 2021-02-13 Pat Name: REMIGIO CUMMINGS Department: Room: [place] [address] Gender: Male Cryptologic Support Specialist: noa : 1945 Requested By: KAREN BETANCOURT Order Number: [id number] Reading MD: Michelle Staples Measurements Intervals [place] Rate: 82 P: 65 MS: 180 QRS: 75 QRSD: 108 T: 73 QT: 362 QTc: 422 Interpretive Statements Normal sinus rhythm Nonspecific T wave abnormality Electronically Signed on 02-13-2021 18:39:24 EDT by Michelle Staples
[2021-02-13] MEDS: IPRATROPIUM 0.5MG/ALBUTEROL 2.5MG INH SOL UD 3ML (DUONEB) NEB SCH ×2 (18:50→19:10)
[2021-02-13] MEDS: HEPARIN SOD (PORCINE) 5000UNITS/ML 1ML VIAL/SYRINGE IV PRN (18:50)
--- NOTE | 2021-02-13 20:33 | IPNPDOC ---
Text Note Date of Service The patient was seen on 02/13/21. NOTE Significant event. Patient seen at bedside as he is declining CT tonight given he is "exhausted and day is done". Patient has had several studies done today and verbalizes he understands the risk if he is not to get this CT chest which could change care plan depending on read. With delayed imaging and delay in possible adjustments to care plan-it could include worsening clinical condition and even . Patient verbalizes understanding of risks and he still wants to proceed with CT in a.m. as opposed to this evening. Will respect patient's wishes and continue to monitor. VS,Fishbone, I+O VS, Fishbone, I+O Laboratory Tests 02/13/21 05:27 Vital Signs Date Time Temp Pulse Resp B/P (MAP) Pulse Ox O2 Delivery O2 Flow Rate FiO2 02/13/21 19:11 95 22 02/13/21 16:45 117/60 (79) 113/62 (79) 113/62 (79) 02/13/21 14:00 97.7 96 Venturi Mask 6.0 28 I&O- Last 24 Hours up to 6 AM 02/13/21 06:00 Intake Total 363 ml Output Total 631 ml Balance -268 ml VANNA YAO NP Feb 13, 2021 20:33
[2021-02-13] MEDS ORDERED: TIOTROPIUM INHALER/CAPSULE (SPIRIVA) INH SCH (21:00)
[2021-02-13] MEDS ORDERED: DICLOFENAC EPOLAMINE 1.3 % PATCH TOP SCH (21:00)
[2021-02-13] MEDS ORDERED: ISOVUE-370 76% 100ML VIAL As Ordered ONE (21:05)
[2021-02-13] MEDS ORDERED: carisoprodoL 350 MG TAB PO PRN (22:35)
[2021-02-13] MEDS ORDERED: MORPHINE 2 MG/ML 1ML VIAL (J2270) IV PRN (22:35)
[2021-02-13] MEDS: TAMSULOSIN 0.4 MG CAP PO SCH (22:59)
[2021-02-14] MEDS: IPRATROPIUM 0.5MG/ALBUTEROL 2.5MG INH SOL UD 3ML (DUONEB) NEB SCH ×7 (03:50→23:16)
[2021-02-14 06:00] VITALS: BP 113/59
[2021-02-14 06:52] LABS: BASO % 0.3 % (0.0-1.0); EOS # 0.2 10^3/uL (0.0-0.5); HEMATOCRIT 29.7 % (42.0-52.0); HEMOGLOBIN 10.1 g/dl (13.5-17.5); LYMPH # 1.7 10^3/uL (1.5-5.0); LYMPH % 16.4 % (24.0-44.0); MEAN CORPUSCULAR HEMOGLOBIN 32.2 pg (27.0-33.0); MEAN CORPUSCULAR VOLUME 94.6 fl (80.0-96.0); MONO # 0.8 10^3/uL (0.0-0.8); MONO % 7.3 % (2.0-8.0); NEUTROPHILS # 7.5 10^3/uL (1.5-8.5); NEUTROPHILS % 73.5 % (36.0-66.0); PLATELET COUNT, AUTOMATED 317 10^3/uL (150-450); RED BLOOD COUNT 3.14 10^6/uL (4.30-6.10); WHITE BLOOD COUNT 10.2 10^3/uL (4.0-10.0)
[2021-02-14 07:10] LABS: BLOOD UREA NITROGEN 31 MG/DL (7-18); CALCIUM LEVEL 8.4 MG/DL (8.8-10.2); CARBON DIOXIDE LEVEL 26 MEQ/L (21-32); CHLORIDE LEVEL 99 MEQ/L (98-107); CREATININE FOR GFR 1.06 MG/DL (0.70-1.30); GLOMERULAR FILTRATION RATE > 60.0 (>42); GLUCOSE, FASTING 103 MG/DL (70-100); POTASSIUM SERUM 4.5 MEQ/L (3.5-5.1); SODIUM LEVEL 133 MEQ/L (136-145)
[2021-02-14] MEDS ORDERED: ISOVUE-370 76% 100ML VIAL As Ordered ONE (08:33)
[2021-02-14] MEDS ORDERED: LIDOCAINE 5% (LIDODERM) PATCH TD SCH (09:00)
[2021-02-14] MEDS: ATORVASTATIN 10 MG TAB PO SCH (09:18)
[2021-02-14] MEDS: NYSTATIN 500,000 U/5 ML SUSP UDC PO SCH ×4 (09:18→22:05)
[2021-02-14] MEDS: FUROSEMIDE 40MG/4ML VIAL (J1940) IV SCH (09:18)
[2021-02-14] MEDS: ASPIRIN 81MG ENTERIC TABLET PO SCH (09:18)
[2021-02-14] MEDS: MONTELUKAST 10 MG TAB PO SCH (09:19)
[2021-02-14] MEDS: IRON POLYSAC (NIFEREX) 150 MG CAP PO SCH ×2 (09:19→22:16)
[2021-02-14] MEDS: SUCRALFATE 1 GM TAB PO SCH ×3 (09:19→18:25)
[2021-02-14] MEDS: METOPROLOL TART 50 MG TAB PO SCH ×2 (09:19→22:16)
[2021-02-14] MEDS: MULTIVITAMINS/MINERALS THERAP 1 TAB PO SCH (09:19)
[2021-02-14] MEDS: guaiFENesin ER 600 MG TAB PO SCH ×2 (09:20→22:16)
--- NOTE | 2021-02-14 09:31 | REP ---
INDICATION: PE COMPARISON: 01/01/2021 a standard contrast-enhanced helical chest CT TECHNIQUE: CT angiography of the chest after the intravenous administration of 75 cc Isovue 370 attention pulmonary arteries. FINDINGS: There is excellent visualization of the pulmonary arterial vasculature. There are no focal filling defects present that would be considered consistent with acute pulmonary emboli. A slight pericardial effusion and tiny right pleural effusion has developed since the last exam. There is no mediastinal or hilar adenopathy. There is no significant change in the imaged osseous structures. Evaluation of the lung lomas shows emphysematous changes and cylindrical bronchiectasis status quo. There is a pleural based density in the superior segment of the right lower lobe status quo. There are no new abnormal nodules, masses, or opacities. IMPRESSION: 1. There is no evidence of a pulmonary embolism. 2. Effusions as described above. 3. Chronic lung field changes as described. <Electronically signed by Flaco Jacobson > 02/14/21 [id number]
--- NOTE | 2021-02-14 11:03 | IPNPDOC ---
Text Note Date of Service The patient was seen on 02/14/21. NOTE Subjective: He is sleeping patient refused chest CTA. In the morning patient stated that he feels better and his breathing improved Objective: GENERAL APPEARANCE: NAD HEENT: no scleral icterus, plus JVD, EOMI CARDIOVASCULAR: Irregularly irregular with heart rate around 85 LUNGS: Diminished lung sounds bilaterally ABDOMEN: soft & not tender w palpation MUSCULOSKELETAL: no cyanosis, no swelling INTEGUMENT: no generalized pallor NEUROLOGICAL: cranial nerve function from 2-12 intact, follows commands, speech not dysarthric Assessment and plan Patient 75 years old male with past medical history of COPD on chronic 2 L nasal cannula nocturnally, GERD, ALEM, hep C, hypertension, HDL and history of EtOH/IV drug abuse presented to hospital with progressive dysphagia/odynophagia. Patient was found to have atrial fibrillation with rapid ventricular rate and dyspnea secondary to COPD exacerbation. dysphagia/odynophagia/GERD Unknown etiology for now. Differential diagnosis includes malignancy, stricture, achalasia GI team will proceed with EGD after respiratory status improvement Will check a Barium swallow on Monday Full liquid diet PPI Atrial fibrillation with rapid ventricular rate Heart rate under control Continue Heparin drip Metoprolol 50 mg twice daily Dizziness Resolved Hematuria Most likely after traumatic Gabriel insertion Continue to monitor BPH Tamsulosin Leukocytosis Improved Patient afebrile, looks nontoxic Normocytic anemia Most likely anemia of chronic diseases superimposed with iron deficient anemia Iron panel shows low iron Iron supplementation We will check stool for occult blood Await B12, folate Dyspnea Secondary to COPD exacerbation superimposed with atrial fibrillation with rapid ventricular rate. Improved today Chest CTA negative for PE Patient has allergy for glucocorticoids Continue DuoNeb [id number], continue Mucinex Hypertension Blood pressure under control Continue home meds Continue statin OA and chronic pain Continue pain management Hyponatremia Improved History of hepatitis C He was tested and may have been treated in 2006 with interferon based treatment Patient does not have transaminitis Will check Hep C RNA and Genotype Follow-up with GI team/ID team in the outpatient settings VS,Mario, I+O VS, Mario, I+O Laboratory Tests 02/14/21 06:39 Vital Signs Date Time Temp Pulse Resp B/P (MAP) Pulse Ox O2 Delivery O2 Flow Rate FiO2 02/14/21 09:19 77 127/68 02/14/21 06:00 97.3 28 97 Nasal Cannula 2.0 02/13/21 14:00 28 I&O- Last 24 Hours up to 6 AM 02/14/21 06:00 Intake Total 802 ml Output Total 1550 ml Balance -748 ml KAREN BETANCOURT DO Feb 14, 2021 11:03
[2021-02-14] MEDS: PANTOPRAZOLE 40MG VIAL (C9113 PER 1) IV SCH ×2 (12:52→23:56)
[2021-02-14] MEDS: HEPARIN DRIP 25,000 UNITS in IV 1 EA IV SCH (13:26)
[2021-02-14] MEDS: HEPARIN SOD (PORCINE) 5000UNITS/ML 1ML VIAL/SYRINGE IV PRN (13:28)
[2021-02-14 14:00] VITALS: BP 108/66
[2021-02-14] MEDS: LevoFLOXacin IV 750 MG in IV 1 EA IV SCH (16:27)
[2021-02-14] MEDS ORDERED: **NOTE PATIENT COMMENT** MISC XX SCH (21:00)
[2021-02-14 22:00] VITALS: BP 108/60
[2021-02-14] MEDS: TAMSULOSIN 0.4 MG CAP PO SCH (22:15)
[2021-02-15] MEDS: IPRATROPIUM 0.5MG/ALBUTEROL 2.5MG INH SOL UD 3ML (DUONEB) NEB SCH ×3 (03:01→11:25)
[2021-02-15 06:00] VITALS: BP 114/64
[2021-02-15 06:31] LABS: BASO % 0.4 % (0.0-1.0); EOS # 0.2 10^3/uL (0.0-0.5); EOS % 2.6 % (0.0-3.0); HEMATOCRIT 31.4 % (42.0-52.0); HEMOGLOBIN 10.7 g/dl (13.5-17.5); LYMPH # 1.6 10^3/uL (1.5-5.0); MEAN CORPUSCULAR HEMOGLOBIN 32.1 pg (27.0-33.0); MEAN CORPUSCULAR HGB CONC 34.1 g/dl (32.0-36.5); MEAN CORPUSCULAR VOLUME 94.3 fl (80.0-96.0); MONO # 0.7 10^3/uL (0.0-0.8); MONO % 9.4 % (2.0-8.0); NEUTROPHILS # 4.6 10^3/uL (1.5-8.5); NEUTROPHILS % 65.3 % (36.0-66.0); PLATELET COUNT, AUTOMATED 333 10^3/uL (150-450); RED BLOOD COUNT 3.33 10^6/uL (4.30-6.10)
[2021-02-15 06:54] LABS: BLOOD UREA NITROGEN 28 MG/DL (7-18); CALCIUM LEVEL 8.7 MG/DL (8.8-10.2); CARBON DIOXIDE LEVEL 29 MEQ/L (21-32); CHLORIDE LEVEL 97 MEQ/L (98-107); CREATININE FOR GFR 1.07 MG/DL (0.70-1.30); GLOMERULAR FILTRATION RATE > 60.0 (>42); GLUCOSE, FASTING 115 MG/DL (70-100); POTASSIUM SERUM 4.1 MEQ/L (3.5-5.1); SODIUM LEVEL 132 MEQ/L (136-145)
[2021-02-15] MEDS: SUCRALFATE 1 GM TAB PO SCH ×2 (07:30→11:43)
[2021-02-15] MEDS ORDERED: ELIQ5TAB PO (08:50)
[2021-02-15] MEDS: NYSTATIN 500,000 U/5 ML SUSP UDC PO SCH ×2 (09:00→13:00)
[2021-02-15] MEDS: FUROSEMIDE 40MG/4ML VIAL (J1940) IV SCH (09:00)
[2021-02-15 10:17] VITALS: BP 117/61
[2021-02-15] MEDS: METOPROLOL TART 50 MG TAB PO SCH (10:17)
[2021-02-15] MEDS ORDERED: LEVO500T3 PO (10:44)
[2021-02-15] MEDS ORDERED: TORS5TAB2 PO (10:44)
[2021-02-15] MEDS ORDERED: FLOM0.4C39 PO (10:44)
[2021-02-15] MEDS ORDERED: IRON1TAB2 PO (10:44)
[2021-02-15] MEDS ORDERED: PANT40TA29 PO (10:44)
[2021-02-15] MEDS ORDERED: DIFL200T PO (10:44)
[2021-02-15] MEDS ORDERED: LOPR1TAB6 PO (10:44)
[2021-02-15] MEDS ORDERED: ATOR1TAB19 PO (10:44)
--- NOTE | 2021-02-15 10:53 | ECHO ---
ECHOCARDIOGRAM DATE OF PROCEDURE: 02/13/2021 Age: 75 Gender: Height: Weight: REFERRING PROVIDER: Dr. Jorje Nix. PATIENT LOCATION: Room 4207. REASON FOR THE TESTING: Pericardial effusion. 2D MEASUREMENTS: IVS 0.9 cm LV 4.5 cm LVPW 1.2 cm LA 4.2 cm Aorta 4.2 cm IVC 2.4 cm DOPPLER MEASUREMENT Peak velocity across the aortic valve 1.1 m/s Peak velocity across the LVOT 0.9 m/s Mitral E 0.68 Mitral A 0.74 with a ratio of 0.9 Maximum tricuspid valve velocity 2.4 m/s 2D COMMENTS: 1. Normal left ventricular size, wall thickness, and normal global left ventricular systolic function with an LVEF estimated at 65 to 70%. 2. Mildly enlarged left atrium. Normal right atrium and right ventricle. 3. There was increased mobility at the level of the atrial septum consistent with some degree of atrial septal aneurysm but no evidence of shunt through that septum. 4. Mildly dilated aortic root at 4.2 cm. 5. A small pericardial effusion was noted. No evidence of cardiac tamponade. 6. Normal aortic valve. Mildly calcified mitral annulus with normal anterior mitral valve leaflet motion. Normal tricuspid valve and pulmonic valve. The proximal pulmonary artery branches were not well visualized. 7. The inferior vena cava was mildly enlarged. Central venous pressure might be elevated. DOPPLER: It detects mild mitral regurgitation and mild tricuspid regurgitation. The calculated pulmonary artery systolic pressure varies between 30 to 40 mmHg. Abnormal relaxation pattern was noted across the mitral valve leaflets as well as the mitral valve annulus consistent with features of grade 1 left ventricular diastolic dysfunction. IMPRESSION: 1. Normal global left ventricular systolic function with a hyperdynamic left ventricle. There were some features of grade 1 left ventricular diastolic dysfunction manifested by abnormal relaxation. 2. Mitral annulus calcification with mild mitral regurgitation. 3. Mild tricuspid regurgitation with mild pulmonary hypertension. 4. A small pericardial effusion was noted. No evidence of cardiac tamponade. 5. 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 6. There were some features of elevated central venous pressure. The inferior vena cava was mildly enlarged.
[2021-02-15] MEDS: IRON POLYSAC (NIFEREX) 150 MG CAP PO SCH (11:43)
[2021-02-15] MEDS: MULTIVITAMINS/MINERALS THERAP 1 TAB PO SCH (11:43)
[2021-02-15] MEDS: MONTELUKAST 10 MG TAB PO SCH (11:43)
[2021-02-15] MEDS: ATORVASTATIN 10 MG TAB PO SCH (11:43)
[2021-02-15] MEDS: guaiFENesin ER 600 MG TAB PO SCH (11:44)
[2021-02-15] MEDS: ASPIRIN 81MG ENTERIC TABLET PO SCH (11:44)
[2021-02-15] MEDS: PANTOPRAZOLE 40MG VIAL (C9113 PER 1) IV SCH (12:00)
[2021-02-15 12:13] LABS: FOLATE 20.9 NG/ML (>5.4)
--- NOTE | 2021-02-15 14:37 | DS.PDOC ---
Discharge Summary General Date of Admission Feb 14, 2021 at 12:26 Date of Discharge 02/15/21 Discharge Summary PROCEDURES PERFORMED DURING STAY: [None]. ADMITTING DIAGNOSES: Dysphagia/odynophagia/GERD Dizziness Atrial fibrillation with rapid ventricular rate Hematuria BPH Leukocytosis Normocytic anemia Dyspnea Hypertension OA and chronic pain Hyponatremia History of hepatitis C DISCHARGE DIAGNOSES: Dysphagia/odynophagia/GERD Dizziness Atrial fibrillation with rapid ventricular rate Hematuria BPH Leukocytosis Normocytic anemia Dyspnea Hypertension OA and chronic pain Hyponatremia History of hepatitis C COMPLICATIONS/CHIEF COMPLAINT: Weakness. HISTORY OF PRESENT ILLNESS: Magdiel Alcala is a 75-year-old man with significant history of COPD on chronic 2 L nasal cannula nocturnally, GERD, ALEM, hep C, hypertension, HDL and history of EtOH/IV drug abuse who arrives with complaints of generalized weakness and poor p.o. past 4 days. Patient reports that he has been having symptoms of poor appetite, quickly satiated when eating and sensation of epigastric discomfort/bloating and nausea after eating small amount of food and describes "it getting stuck" for over a month. He also describes right abdominal herniation and "at times has to push it back in" if he eats too much in the past. He reports last bowel movement 4 days ago however he "only has had a scrambled egg and some toast in the past 4 days". He reports he had similar symptoms feb 05 and came in to ED with plans to f/u with GI OP. Patient reports that he has a appointment scheduled on the for GI with Dr. Castellanos. Unfortunately, the past 3 to 4 days he has sensation of feeling weak, had decreased p.o. intake, decreased urine output "the amount of a whisky glass of urine today" and had sensation of feeling dizzy -he decided to come in to the ER. Pt denies dave, sinus congestion, sore throat, productive cough, sob, palpitations, chest pain, sensory changes or syncope. He denies dizziness presently. Of note, chest x-ray nonacute stable chronic changes noted and CT abdomen pelvis nonacute however did show small right pleural effusion, small pericardial effusion and left kidney cyst. Patient was bladder scan was 60 mL in ED and Gabriel placed and bag of fluid given patient with improved urine output however notable hematuria. Initial lab work reveals WBC of 19.1, lactic pending, sodium 130, BUN 29 and creatinine 1.10. HOSPITAL COURSE: During the hospital stay the following issue addressed Patient 75 years old male with past medical history of COPD on chronic 2 L nasal cannula nocturnally, GERD, ALEM, hep C, hypertension, HDL and history of EtOH/IV drug abuse presented to hospital with progressive dysphagia/odynophagia. Patient was found to have atrial fibrillation with rapid ventricular rate and dyspnea secondary to COPD exacerbation. Dysphagia/odynophagia/GERD Unknown etiology for now. Differential diagnosis includes malignancy, stricture, achalasia. I talked to GI team Dr Mullins he recommended to start on antifungal medication for possible candidal esophagitis. GI team planned to proceed with EGD tomorrow And barium swallow today. However patient decided to leave the hospital AMA. I explained to him all bad consequences of his decision. Atrial fibrillation with rapid ventricular rate Patient received treatment with heparin drip. I sent Eliquis 5 mg twice daily to his pharmacy Metoprolol 50 mg twice daily Dizziness Resolved Hematuria Most likely after traumatic Gabriel insertion Resolved BPH Tamsulosin Leukocytosis Improved Patient afebrile, looks nontoxic Normocytic anemia Most likely anemia of chronic diseases superimposed with iron deficient anemia Iron panel shows low iron Iron supplementation stool for occult blood pending Await B12, folate within normal limit Dyspnea Secondary to COPD exacerbation superimposed with atrial fibrillation with rapid ventricular rate. Improved today Chest CTA negative for PE Patient has allergy for glucocorticoids Patient received DuoNeb [id number] and Mucinex History of hepatitis C He was tested and may have been treated in 2006 with interferon based treatment Patient does not have transaminitis Hep C RNA and Genotype pending Follow-up with GI team/ID team in the outpatient settings DISCHARGE MEDICATIONS: Please see below. ALLERGIES: Please see below. PHYSICAL EXAMINATION ON DISCHARGE: GENERAL APPEARANCE: NAD HEENT: no scleral icterus, plus JVD, EOMI CARDIOVASCULAR: Irregularly irregular with heart rate around 85 LUNGS: Diminished lung sounds bilaterally ABDOMEN: soft & not tender w palpation MUSCULOSKELETAL: no cyanosis, no swelling INTEGUMENT: no generalized pallor NEUROLOGICAL: cranial nerve function from 2-12 intact, follows commands, speech not dysarthric LABORATORY DATA: Please see below. IMAGING: See above PROGNOSIS: Fair ACTIVITY: [As tolerated]. DISCHARGE CONDITION: [Stable]. TIME SPENT ON DISCHARGE:40minutes. Vital Signs/I&Os Vital Signs Date Time Temp Pulse Resp B/P (MAP) Pulse Ox O2 Delivery O2 Flow Rate FiO2 9/27/21 10:17 83 117/61 02/15/21 06:00 97.8 22 95 Nasal Cannula 2.0 02/13/21 14:00 28 I&O- Last 24 Hours up to 6 AM 02/15/21 06:00 Intake Total 1565 ml Output Total 2750 ml Balance -1185 ml Laboratory Data Labs 24H Laboratory Tests 2 02/14/21 20:54: Activated Partial Thromboplast Time 84.2H 02/15/21 02:49: Activated Partial Thromboplast Time 102.9H 02/15/21 06:15: Activated Partial Thromboplast Time 71.8H, Immature Granulocyte % (Auto) 0.3, Neutrophils (%) (Auto) 65.3, Lymphocytes (%) (Auto) 22.0L, Monocytes (%) (Auto) 9.4H, Eosinophils (%) (Auto) 2.6, Basophils (%) (Auto) 0.4, Neutrophils # (Auto) 4.6, Lymphocytes # (Auto) 1.6, Monocytes # (Auto) 0.7, Eosinophils # (Auto) 0.2, Basophils # (Auto) 0.0, Nucleated Red Blood Cells % (auto) 0.0, Anion Gap 6L, Glomerular Filtration Rate > 60.0, Calcium Level 8.7L CBC/BMP Laboratory Tests 02/15/21 06:15 Microbiology Microbiology 02/13/21 Blood Culture - Preliminary, Resulted No Growth after 48 hours. All Specime... Discharge Medications Scheduled Apixaban (Eliquis) 5 Mg Tablet, 5 MG PO BID Atorvastatin Calcium (Atorvastatin Calcium) 10 Mg Tablet, 10 MG PO DAILY Ferrous Sulfate (Iron) 325 Mg Tablet, 1 TAB PO BID Fluconazole (Diflucan) 200 Mg Tablet, 1 TAB PO DAILY for yeast infection Lisinopril (Lisinopril) 10 Mg Tablet, 10 MG PO DAILY, (Reported) Metoprolol Tartrate (Lopressor) 50 Mg Tablet, 50 MG PO BID Montelukast Sodium (Montelukast Sodium) 10 Mg Tablet, 10 MG PO DAILY, (Reported) Multivitamin,Therapeutic (Thera-Tabs) 1 Each Tablet, 1 TAB PO DAILY, (Reported) Pantoprazole Sodium (Pantoprazole Sodium) 40 Mg Tablet.dr, 1 TAB PO DAILY Sucralfate (Carafate) 1 Gm Tablet, 1 GM PO AC 3 times per day on an empty stomach 1 hour before meals. May dissolve tablet in 5-10ml (1-2tsp) water to ease swallowing. Tamsulosin HCl (Flomax) 0.4 Mg Capsule, 0.8 MG PO QHS Tiotropium [place] (Spiriva) 18 Mcg Cap.w.dev, 1 INHALATION INH QHS, (Reported) Torsemide (Torsemide) 5 Mg Tablet, 1 TAB PO DAILY Scheduled PRN Albuterol Sulfate (Albuterol Sulfate Hfa) 8.5 Gm Hfa.aer.ad, 2 PUFFS INH Q6H PRN for SHORTNESS OF BREATH, (Reported) Simethicone (Simethicone) 180 Mg Capsule, 180 MG PO TID PRN for BLOATING, (Reported) Allergies Coded Allergies: Corticosteroids (Glucocorticoids) (Verified Allergy, Severe, STEROIDS- AIRWAY ISSUES, 03/06/20) KAREN BETANCOURT DO Feb 15, 2021 14:37
== END 2021-02-15 13:42 | disposition left against medical advice (07) | DRG 392 ==
LOC: M ED 15:39 → M ED INP 15:40 → M MSPAV 02-13 02:16 → OBSVTOIN 02-14 12:26
PROVIDERS: ADMIT Family Medicine; ATTEND Internal Medicine
DX: R13.10 Dysphagia, unspecified (principal); J44.1 Chronic obstructive pulmonary disease with (acute) exacerbation; E87.1 Hypo-osmolality and hyponatremia; B37.81 Candidal esophagitis; I48.91 Unspecified atrial fibrillation; I10 Essential (primary) hypertension; R31.9 Hematuria, unspecified; N40.0 Benign prostatic hyperplasia without lower urinary tract symptoms; M19.90 Unspecified osteoarthritis, unspecified site; K21.9 Gastro-esophageal reflux disease without esophagitis; D72.829 Elevated white blood cell count, unspecified; D50.9 Iron deficiency anemia, unspecified; G47.33 Obstructive sleep apnea (adult) (pediatric); Z79.899 Other long term (current) drug therapy; Z88.8 Allergy status to other drugs, medicaments and biological substances; K57.30 Diverticulosis of large intestine without perforation or abscess without bleeding; E78.5 Hyperlipidemia, unspecified; K64.8 Other hemorrhoids; Z99.81 Dependence on supplemental oxygen; K44.9 Diaphragmatic hernia without obstruction or gangrene; Z87.891 Personal history of nicotine dependence

== ENCOUNTER → 2022-04-06 | Outpatient (CLI) | payer MEDICARE, MEDICAID ==
[~2022-04-06] MED LIST changes: +ALBU8.5H INH; +ASPI81TA26 PO; +ATOR1TAB19 PO; +BAYE81TA7 PO; +CLAR10CA3 PO; +DIFL200T PO; +ELIQ5TAB PO; +FLOM0.4C39 PO; +IRON1TAB2 PO; +LEVO1TAB39 PO; +LOPR1TAB6 PO; +MONT10TA97 PO; +NAPR-885 PO; +PANT40TA29 PO; +ROSU20TA5 PO; +SIME1CAP3 PO; +THERTAB52 PO; +TORS5TAB2 PO
== END ==
LOC: M LABSMTC 09:14
PROVIDERS: ATTEND Anesthesiology
DX: Z01.812 Encounter for preprocedural laboratory examination (principal); Z11.52 Encounter for screening for COVID-19

== ENCOUNTER 2022-04-11 08:39 | Day surgery (SDC) | payer MEDICARE, MEDICAID ==
[~2022-04-11] VITALS: Ht 193 cm; Wt 82.1 kg
[~2022-04-11 08:39] MED LIST changes: +NS 1,000 ML IV ONE
[2022-04-11] MEDS ORDERED: propofoL 200 MG/20 ML VIAL As Ordered ONE (10:43)
[2022-04-11] MEDS ORDERED: LIDOCAINE 2% INJ 100 MG/5 ML SYRINGE As Ordered ONE (10:44)
[2022-04-11 12:30] VITALS: BP 139/74
== END 2022-04-11 13:28 | disposition home or self-care (01) ==
LOC: M OPP 08:39
PROVIDERS: ATTEND Internal Medicine Gastroenterology
DX: Z12.11 Encounter for screening for malignant neoplasm of colon (principal); K64.0 First degree hemorrhoids; K57.30 Diverticulosis of large intestine without perforation or abscess without bleeding; K44.9 Diaphragmatic hernia without obstruction or gangrene; K29.80 Duodenitis without bleeding; B19.20 Unspecified viral hepatitis C without hepatic coma; M19.90 Unspecified osteoarthritis, unspecified site; F41.9 Anxiety disorder, unspecified; F32.A Depression, unspecified; F43.10 Post-traumatic stress disorder, unspecified; J44.9 Chronic obstructive pulmonary disease, unspecified; N40.0 Benign prostatic hyperplasia without lower urinary tract symptoms; F17.210 Nicotine dependence, cigarettes, uncomplicated; Z88.1 Allergy status to other antibiotic agents; Z88.8 Allergy status to other drugs, medicaments and biological substances; Z79.82 Long term (current) use of aspirin; Z79.899 Other long term (current) drug therapy
CPT/HCPCS: 43239; 88305; G0121